=== PATIENT | male | born 1985 | race Hispanic/Latino ===

== ENCOUNTER 2023-10-29 22:19 | Emergency (ER) | payer BC ==
[~2023-10-29] VITALS: Ht 167.6 cm; Wt 99.8 kg
[~2023-10-29 22:19] MED LIST: HYDROCODON-ACE1 EA11 PO
[2023-10-29 22:38] VITALS: O2SAT 99
== END 2023-10-29 22:54 | disposition home or self-care (01) ==
LOC: ER 22:31
DX: Z47.89 Encounter for other orthopedic aftercare (principal); E03.9 Hypothyroidism, unspecified
CPT/HCPCS: 99283